=== PATIENT | female | born 1960 | race Caucasian/White ===

== ENCOUNTER → 2018-04-08 09:12 | Outpatient (CLI) | payer OTHER, SELFPAY ==
--- NOTE | 2018-04-08 09:19 | BI_ITS ---
MAMMOGRAPHY - BILATERAL SCREENING 3-D EILEEN SYNTHESIS REASON FOR EXAM: Female, 57 years old. Bilateral Screening 3-D tomosynthesis PERTINENT HISTORY: No significant family history. TECHNIQUE: 2-D mammograms and 3-D Eileen synthesis of the breast (s) were performed. CAD was performed. COMPARISON: March 08, 2017, February 26, 2016 FINDINGS: The breast composition is composed of scattered fibroglandular density. Scattered benign calcifications are seen. No dense spiculated masses or suspicious microcalcifications are identified. No architectural distortion is identified. There is no skin thickening or retraction. There has been no significant change since the prior study. BI/SCREENING MAMM (CAD), BILAT IMPRESSION: No mammographic signs of malignancy. Routine yearly mammograms recommended. ASSESSMENT CATEGORY: BIRADS Category 2: Benign. A letter regarding these results will be sent to the patient by the facility within 30 days. FOLLOW UP RECOMMENDATION: Yearly follow up mammogram recommended. (A) Approximately 10% of breast cancers are not detected by mammography. A normal mammogram should not delay biopsy of a clinically suspicious abnormality. Electronically Signed: Jhon Pham MD at 17:45 EDT , Service support ,
== END ==
PROVIDERS: Family Provider Family Medicine; PCP Family Medicine; Visit Provider Family Medicine
DX: Z12.31 Encounter for screening mammogram for malignant neoplasm of breast (principal)
CPT/HCPCS: 77063; 77067

== ENCOUNTER → 2019-04-23 | Outpatient (CLI) | payer OTHER, SELFPAY ==
--- NOTE | 2019-04-23 13:25 | BI_ITS ---
MAMMOGRAPHY - BILATERAL SCREENING REASON FOR EXAM: Female, 58 years old. Routine annual screening examination. PERTINENT HISTORY: Aunt with breast cancer. TECHNIQUE: Digital bilateral breast eileen (3D mammographic acquisition) in the CC and MLO projections. 2-D mediolateral oblique (MLO) and craniocaudad (CC) views of both breasts were obtained. CAD: Full Field Digital Mammography with Computer Added Detection was performed. COMPARISON: Comparison is made with prior study dated April 08, 2018 and March 08, 2017. FINDINGS: Breast Composition: The breasts are heterogeneously dense, which may obscure small masses. There are no dominant masses or suspicious calcifications. No other significant abnormalities are identified. There has been no significant change since the prior study. BI/SCREEN MAMM (CAD) W/EILEEN BILAT IMPRESSION: Stable bilateral screening mammogram. Yearly follow-up mammogram recommended. (A) ASSESSMENT CATEGORY: BIRADS Category 1: Negative. A letter regarding these results will be sent to the patient by the facility within 30 days. Approximately 10% of breast cancers are not detected by mammography. A normal mammogram should not delay biopsy of a clinically suspicious abnormality. [id number] Electronically Signed: Flavio Shelley, at 14:53 EDT , Service support ,
== END | disposition home or self-care (01) ==
LOC: OPBI 13:23
PROVIDERS: Family Provider Family Medicine; PCP Family Medicine; Referring Provider Family Medicine; Visit Provider Family Medicine
DX: Z12.31 Encounter for screening mammogram for malignant neoplasm of breast (principal)
CPT/HCPCS: 77063; 77067

== ENCOUNTER → 2019-07-13 07:31 | Outpatient (CLI) | payer OTHER, SELFPAY ==
[2019-07-13 11:15] LABS: Anion Gap 7 (5-15); BUN 14 mg/dL (7-18); BUN/Creat Ratio 15.5 RATIO (10-20); Calcium,Total 8.5 mg/dL (8.5-10.1); Chloride 108 mmol/L (98-107); Cholesterol 174 mg/dL (200); EST Glomerular Filtration Rate 68 mL/min (>60); Est Glom Filt Rate - Afr Amer 82 mL/min (>60); Glucose 80 mg/dL (74-106); High Density Lipoprotein 85 mg/dL; Potassium 3.9 mmol/L (3.5-5.1); Sodium Level 144 mmol/L (136-145); Triglycerides 65 mg/dL; Very Low Density Lipoprotein 13 mg/dL (5-40)
== END ==
PROVIDERS: Family Provider Family Medicine; PCP Family Medicine; Referring Provider Family Medicine; Visit Provider Family Medicine
DX: Z13.220 Encounter for screening for lipoid disorders (principal); Z13.1 Encounter for screening for diabetes mellitus
CPT/HCPCS: 36415; 80048; 80061

== ENCOUNTER → 2020-06-06 10:14 | Outpatient (CLI) | payer OTHER, SELFPAY ==
[2020-06-06 12:18] LABS: Absolute Lymphocyte Count 1.29 X10^3/uL (0.83-4.51); Absolute Neutrophil Count 3.5 X10^3/uL (2.0-7.7); Basophil# 0.06 X10^3/uL; Basophil% 1.1 % (0-1); Eosinophil# 0.12 X10^3/uL; Eosinophils% 2.2 % (0-5); Hematocrit 41.6 % (37-47); Hemoglobin 13.4 g/dL (12.0-15.0); Lymphocyte # 1.29 X10^3/ul (4.0); Lymphocyte % 23.2 % (19-41); Mean Corp Hgb Conc 32.2 g/dL (32-36); Mean Corpuscular Hgb 30.7 pg (27.0-32.0); Mean Corpuscular Volume 95.2 fL (81-99); Monocyte# 0.61 X10^3/uL; NRBC Flagged by Analyzer 0 % (0-5); Neutrophil # 3.48 X10^3/uL (2.7-7.7); Neutrophil % 62.3 % (47-70); Platelet Count 211 K/mm3 (150-450); RBC Distribution Width CV 13.4 % (11.6-14.6); RBC Distribution Width SD 46.5 fl (35.1-43.9); Red Blood Count 4.37 M/mm3 (4.2-5.4); White Blood Count 5.6 K/mm3 (4.4-11.0)
[2020-06-06 12:35] LABS: ALB/GLOB Ratio 1.2 RATIO (0.9-2.4); AST(SGOT) 20 U/L (15-37); Alanine Aminotransfer ALT/SGPT 25 U/L (13-56); Albumin, Serum 3.8 g/dL (3.2-5.0); Alkaline Phosphatase 57 U/L (45-117); Anion Gap 2 (5-15); BUN 18 mg/dL (7-18); BUN/Creat Ratio 19.3 RATIO (10-20); Calcium,Total 8.5 mg/dL (8.5-10.1); Chloride 106 mmol/L (98-107); Creatinine, Serum 0.93 mg/dL (0.55-1.02); EST Glomerular Filtration Rate 65 mL/min (>60); Est Glom Filt Rate - Afr Amer 79 mL/min (>60); Globulin 3.3 g/dL (2.2-4.2); Glucose 93 mg/dL (74-106); Potassium 4.6 mmol/L (3.5-5.1); Protein, Total 7.1 g/dL (6.4-8.2); Sodium Level 139 mmol/L (136-145); T4 Free Direct 1.08 ng/dL (0.76-1.46); Thyroid Stim Hormone (TSH) 1.45 uIU/mL (0.358-3.74)
[2020-06-09 21:13] LABS: Anti-Thyroglobulin AB < 1.0 IU/mL (0.0-0.9); Thyroid Peroxidase AB 10 IU/mL (0-34)
[2020-06-15 13:21] LABS: HPV Reflexed? YES, CHARGE PATIENT
== END ==
PROVIDERS: PCP Family Medicine; Referring Provider Family Medicine; Visit Provider Family Medicine
DX: Z01.419 Encounter for gynecological examination (general) (routine) without abnormal findings (principal); E55.9 Vitamin D deficiency, unspecified; E01.0 Iodine-deficiency related diffuse (endemic) goiter
CPT/HCPCS: 36415; 80053; 82306; 84432; 84439; 84443; 85025; 86376; 86800; 87624; 88175; G0145

== ENCOUNTER → 2020-06-20 12:12 | Outpatient (CLI) | payer OTHER, SELFPAY ==
--- NOTE | 2020-06-20 12:29 | US_ITS ---
STUDY: THYROID ULTRASOUND REASON FOR EXAM: Female, 59 years old. Thyromegaly TECHNIQUE: Ultrasound evaluation of the thyroid was performed with real-time and static fried-scale imaging. COMPARISON: None. FINDINGS: RIGHT LOBE: The right lobe of the thyroid gland is slightly enlarged and measures 5.1 cm x 1.3 cm x 1.5 cm. There is a homogeneous echotexture. There is a 3 mm x 3 mm x 2 mm hypoechoic solid nodule in the upper pole of the right lobe. LEFT LOBE: The left lobe of the thyroid gland measures 4.8 cm x 1.2 cm x 1.1 cm. There is a homogeneous echotexture. There is a 4 mm x 3 mm x 2 mm hypoechoic solid nodule in the upper pole of the left lobe. ISTHMUS: The isthmus measures 2.2 mm. The regional lymph nodes are normal. US/Thyroid IMPRESSION: Small, subcentimeter hypoechoic nodules in both lobes as described. Electronically Signed: Flavio Shelley, at 13:49 EDT , Service support ,
--- NOTE | 2020-06-20 12:29 | BI_ITS ---
MAMMOGRAPHY - BILATERAL SCREENING REASON FOR EXAM: Female, 59 years old. Routine annual screening examination. PERTINENT HISTORY: Aunt with breast cancer. TECHNIQUE: Digital bilateral breast eileen (3D mammographic acquisition) in the CC and MLO projections. 2-D mediolateral oblique (MLO) and craniocaudad (CC) views of both breasts were obtained. CAD: Full Field Digital Mammography with Computer Added Detection was performed. COMPARISON: Comparison is made with prior examination dated 04/23/2019 and 04/08/2018. FINDINGS: Breast Composition: The breasts are heterogeneously dense, which may obscure small masses. There are no dominant masses or suspicious calcifications. No other significant abnormalities are identified. There has been no significant change since the prior study. BI/SCREEN MAMM (CAD) W/EILEEN BILAT IMPRESSION: Stable bilateral screening mammogram. Yearly follow-up mammogram recommended. (A) ASSESSMENT CATEGORY: BIRADS Category 1: Negative. A letter regarding these results will be sent to the patient by the facility within 30 days. Approximately 10% of breast cancers are not detected by mammography. A normal mammogram should not delay biopsy of a clinically suspicious abnormality. [id number] Electronically Signed: Flavio Shelley, at 13:21 EDT , Service support ,
== END ==
PROVIDERS: PCP Family Medicine; Referring Provider Family Medicine; Visit Provider Family Medicine
DX: E01.0 Iodine-deficiency related diffuse (endemic) goiter (principal); Z12.31 Encounter for screening mammogram for malignant neoplasm of breast
CPT/HCPCS: 76536; 77063; 77067

== ENCOUNTER → 2021-06-24 08:00 | Outpatient (CLI) | payer OTHER, SELFPAY ==
--- NOTE | 2021-06-24 08:03 | BI_ITS ---
MAMMOGRAPHY - BILATERAL SCREENING REASON FOR EXAM: Female, 60 years old. Routine annual screening examination. PERTINENT HISTORY: Aunt with breast cancer. TECHNIQUE: Digital bilateral breast eileen (3D mammographic acquisition) in the CC and MLO projections. 2-D mediolateral oblique (MLO) and craniocaudad (CC) views of both breasts were obtained. CAD: Full Field Digital Mammography with Computer Added Detection was performed. COMPARISON: Comparison is made with prior study dated 06/20/2020 and 04/23/2019. FINDINGS: Breast Composition: The breasts are heterogeneously dense, which may obscure small masses. There are no dominant masses or suspicious calcifications. No other significant abnormalities are identified. There has been no significant change since the prior study. BI/SCRN MAMM (CAD)W/EILEEN BILAT IMPRESSION: Stable bilateral screening mammogram. Yearly follow-up mammogram recommended. (A) ASSESSMENT CATEGORY: BIRADS Category 1: Negative. A letter regarding these results will be sent to the patient by the facility within 30 days. Approximately 10% of breast cancers are not detected by mammography. A normal mammogram should not delay biopsy of a clinically suspicious abnormality. [id number] Electronically Signed: Flavio Shelley MD at 8:39 EDT , Service support ,
== END ==
PROVIDERS: PCP Family Medicine; Referring Provider Family Medicine; Visit Provider Family Medicine
DX: Z12.31 Encounter for screening mammogram for malignant neoplasm of breast (principal)
CPT/HCPCS: 77063; 77067

== ENCOUNTER → 2022-06-25 | Outpatient (CLI) | payer OTHER, SELFPAY ==
--- NOTE | 2022-06-25 13:09 | BI_ITS ---
MAMMOGRAPHY - BILATERAL SCREENING REASON FOR EXAM: Female, 61 years old. Routine annual screening examination. PERTINENT HISTORY: Aunt with breast cancer. TECHNIQUE: Digital bilateral breast mimi (3D mammographic acquisition) in the CC and MLO projections. 2-D mediolateral oblique (MLO) and craniocaudad (CC) views of both breasts were obtained. CAD: Full Field Digital Mammography with Computer Added Detection was performed. COMPARISON: Comparison is made with prior study 06/24/2021 and 06/20/2020. FINDINGS: Breast Composition: The breasts are heterogeneously dense, which may obscure small masses. There are no dominant masses or suspicious calcifications. No other significant abnormalities are identified. There has been no significant change since the prior study. BI/SCREENING MAMM (CAD), BILAT IMPRESSION: Stable bilateral screening mammogram. Yearly follow-up mammogram recommended. (A) ASSESSMENT CATEGORY: BIRADS Category 1: Negative. A letter regarding these results will be sent to the patient by the facility within 30 days. Approximately 10% of breast cancers are not detected by mammography. A normal mammogram should not delay biopsy of a clinically suspicious abnormality. [id number] Electronically Signed: Flavio Shelley MD at 13:47 EDT ,
== END | disposition home or self-care (01) ==
PROVIDERS: PCP Family Medicine; Visit Provider Family Medicine
DX: Z12.31 Encounter for screening mammogram for malignant neoplasm of breast (principal)
CPT/HCPCS: 77067

== ENCOUNTER → 2022-09-10 | Outpatient (CLI) | payer SELFPAY ==
--- NOTE | 2022-09-10 19:00 | US_ITS ---
INDICATION: MULTIPLE THYROID NODULES EXAMINATION: Ultrasound US Thyroid (eg thyroid, parathyroid, parotid) TECHNIQUE: So scale and color doppler imaging was performed of the thyroid gland. COMPARISON: 06/20/2020. FINDINGS: RIGHT THYROID LOBE: 6.6 mL in volume. Homogeneous echotexture with normal vascularity. [3 x 4 x 2 mm superior right thyroid lobe mostly cystic nodule with central internal echoes suggesting solid component but no color flow is unchanged compared to prior exam. This represents a Ti RADS category 1, benign nodule. No follow-up recommended. LEFT THYROID LOBE: 4.2 mL in volume. Homogeneous echotexture with normal vascularity. [5 x 5 x 3 mm, mixed solid and cystic nodule mid left thyroid lobe, wider than tall with ill-defined margins and no calcifications represents a Ti RADS category 2 nodule, not suspicious. No follow-up recommended ISTHMUS: 3 mm. No thyroid nodules are present. US/Thyroid IMPRESSION: Unchanged benign or not suspicious thyroid nodules as above with no follow-up imaging recommended based on the ACR Ti RADS recommendations. Electronically Signed: Jose L Stoddard DO at 23:08 EDT ,
== END | disposition home or self-care (01) ==
PROVIDERS: PCP Family Medicine; Visit Provider Family Medicine
DX: E04.2 Nontoxic multinodular goiter (principal)
CPT/HCPCS: 76536

== ENCOUNTER → 2023-06-28 | Outpatient (CLI) | payer OTHER, SELFPAY ==
--- NOTE | 2023-06-28 10:36 | BI_ITS ---
MAMMOGRAPHY - BILATERAL SCREENING REASON FOR EXAM: Female, 62 years old. Routine annual screening examination. PERTINENT HISTORY: Aunt with breast cancer. TECHNIQUE: Digital bilateral breast eileen (3D mammographic acquisition) in the CC and MLO projections. 2-D mediolateral oblique (MLO) and craniocaudad (CC) views of both breasts were obtained. CAD: Full Field Digital Mammography with Computer Added Detection was performed. COMPARISON: Screening mammogram from 06/25/2022, 06/24/2021. FINDINGS: Breast Composition: The breasts are heterogeneously dense, which may obscure small masses. There are no dominant masses or suspicious calcifications. No other significant abnormalities are identified. There has been no significant change since the prior study. BI/SCRN MAMM (CAD)W/EILEEN BILAT IMPRESSION: Stable bilateral screening mammogram. Yearly follow-up mammogram recommended. (A) ASSESSMENT CATEGORY: BIRADS Category 1: Negative. A letter regarding these results will be sent to the patient by the facility within 30 days. Approximately 10% of breast cancers are not detected by mammography. A normal mammogram should not delay biopsy of a clinically suspicious abnormality. Electronically Signed: Neftali Jimenes DO at 11:07 EDT ,
== END | disposition home or self-care (01) ==
LOC: OPBI 10:35
PROVIDERS: PCP Family Medicine; Referring Provider Family Medicine; Visit Provider Family Medicine
DX: Z12.31 Encounter for screening mammogram for malignant neoplasm of breast (principal); Z80.3 Family history of malignant neoplasm of breast
CPT/HCPCS: 77063; 77067

== ENCOUNTER → 2024-07-02 | Outpatient (CLI) | payer OTHER, SELFPAY ==
--- NOTE | 2024-07-02 13:01 | BI_ITS ---
MAMMOGRAPHY - BILATERAL SCREENING REASON FOR EXAM: Female, 63 years old. Routine annual screening examination. PERTINENT HISTORY: Aunt with breast cancer. TECHNIQUE: Digital bilateral breast mimi (3D mammographic acquisition) in the CC and MLO projections. 2-D mediolateral oblique (MLO) and craniocaudad (CC) views of both breasts were obtained. CAD: Full Field Digital Mammography with Computer Added Detection was performed. COMPARISON: Comparison is made with prior study dated June 28, 2023 and June 25, 2022. FINDINGS: Breast Composition: The breasts are heterogeneously dense, which may obscure small masses. There are no dominant masses or suspicious calcifications. No other significant abnormalities are identified. There has been no significant change since the prior study. BI/SCREENING MAMM (CAD), BILAT IMPRESSION: Stable bilateral screening mammogram. Yearly follow-up mammogram recommended. (A) ASSESSMENT CATEGORY: BIRADS Category 1: Negative. A letter regarding these results will be sent to the patient by the facility within 30 days. Approximately 10% of breast cancers are not detected by mammography. A normal mammogram should not delay biopsy of a clinically suspicious abnormality. [id number] Electronically Signed: Flavio Shelley MD at 14:02 EDT ,
== END | disposition home or self-care (01) ==
LOC: OPBI 12:59
PROVIDERS: PCP Family Medicine; Referring Provider Family Medicine; Visit Provider Family Medicine
DX: Z12.31 Encounter for screening mammogram for malignant neoplasm of breast (principal); Z80.3 Family history of malignant neoplasm of breast
CPT/HCPCS: 77067

== ENCOUNTER → 2024-07-31 | Outpatient (CLI) | payer OTHER, SELFPAY | END | disposition home or self-care (01) | PROVIDERS: PCP Family Medicine; Visit Provider Family Medicine | DX: Z11.51 Encounter for screening for human papillomavirus (HPV) (principal) ==

== ENCOUNTER → 2024-08-09 | Outpatient (CLI) | payer OTHER, SELFPAY ==
[2024-08-09 08:03] LABS: Mucous, Urine 0 SEEN /hpf (<or=2+); Red Blood Cells-Urine 0 SEEN /hpf (0-5)
[2024-08-09 10:00] LABS: Absolute Neutrophil Count 3.9 X10^3/uL (2.0-7.7); Basophil# 0.06 X10^3/uL; Eosinophil# 0.15 X10^3/uL; Eosinophils% 2.4 % (0-5); Hematocrit 41.5 % (37-47); Hemoglobin 13.3 g/dL (12.0-15.0); Lymphocyte % 25.9 % (19-41); Mean Corpuscular Hgb 29.6 pg (27.0-32.0); Mean Corpuscular Volume 92.4 fL (81-99); Mean Platelet Vol. 10.8 fl (6.2-12.0); Monocyte# 0.48 X10^3/uL; Monocyte% 7.8 % (0-10); NRBC Flagged by Analyzer 0 % (0-5); Neutrophil # 3.87 X10^3/uL (2.7-7.7); Neutrophil % 62.6 % (47-70); Platelet Count 236 K/mm3 (150-450); RBC Distribution Width CV 13.7 % (11.6-14.6); RBC Distribution Width SD 46.7 fl (35.1-43.9); Red Blood Count 4.49 M/mm3 (4.2-5.4); White Blood Count 6.2 K/mm3 (4.4-11.0)
[2024-08-09 10:11] LABS: Color, Urine Straw (Yellow); Glucose, Dipstick Normal (Normal); Ketone-Dipstick Negative (Negative); Leukocyte Esterase-Dipstick 25 /ul (Negative); Nitrite-Dipstick Negative (Negative); Occult Blood-Urine 25 /ul (Negative); Protein-Dipstick Negative (Negative); Urine Bilirubin Dipstick Negative (Negative); Urine Clarity Clear (Clear); Urine Urobilinogen Normal (Normal)
[2024-08-09 10:20] LABS: Bacteria RARE /hpf (None Seen); Squamous Epithelial Cells - UA 5-10 SEEN /hpf (5-10); White Blood Cells 10-25 SEEN /hpf (0-5)
[2024-08-09 11:08] LABS: ALB/GLOB Ratio 1.3 RATIO (0.9-2.4); AST(SGOT) 21 U/L (15-37); Alanine Aminotransfer ALT/SGPT 23 U/L (13-56); Albumin, Serum 3.9 g/dL (3.2-5.0); Alkaline Phosphatase 55 U/L (45-117); Anion Gap 3 (5-15); BUN 19 mg/dL (7-18); BUN/Creat Ratio 20.6 RATIO (10-20); Calcium,Total 9.4 mg/dL (8.5-10.1); Chloride 107 mmol/L (98-107); Cholesterol 197 mg/dL (200); Creatinine, Serum 0.92 mg/dL (0.55-1.02); EST Glomerular Filtration Rate 65 mL/min (>60); Est Glom Filt Rate - Afr Amer 79 mL/min (>60); Globulin 3.1 g/dL (2.2-4.2); Glucose 97 mg/dL (74-106); High Density Lipoprotein 111 mg/dL; Magnesium 2.3 mg/dL (1.6-2.6); Potassium 3.7 mmol/L (3.5-5.1); Sodium Level 139 mmol/L (136-145); T4 Free Direct 1.07 ng/dL (0.76-1.46); Triglycerides 61 mg/dL; Very Low Density Lipoprotein 12 mg/dL (5-40)
== END | disposition home or self-care (01) ==
LOC: MFPLAB 08:02
PROVIDERS: PCP Family Medicine; Referring Provider Family Medicine; Visit Provider Family Medicine
DX: Z00.00 Encounter for general adult medical examination without abnormal findings (principal); E04.2 Nontoxic multinodular goiter; R03.0 Elevated blood-pressure reading, without diagnosis of hypertension
CPT/HCPCS: 36415; 80053; 80061; 81001; 83735; 84439; 84443; 85025

== ENCOUNTER → 2025-07-03 | Outpatient (CLI) | payer MEDICARE, OTHER, SELFPAY ==
--- NOTE | 2025-07-03 12:42 | BI_ITS ---
EXAM: SCRN MAMM (CAD)W/EILEEN BILAT DATE: 07/03/2025 CLINICAL HISTORY: F, Age 64 y/o , ROUTINE SCREENING Aunt with breast cancer. TECHNIQUE: SCRN MAMM (CAD)W/EILEEN BILAT COMPARISON: Prior exam(s) dated July 02, 2024.. FINDINGS: TISSUE DENSITY: The breasts are heterogeneously dense, which may obscure small masses. Bilateral Breast Mammographic Findings: No significant masses, calcifications or other abnormalities are identified. Stable small benign-appearing bilateral axillary lymph nodes. No suspicious masses, areas of developing architectural distortion, or suspicious calcifications. There has been no significant interval change. BI/SCRN MAMM (CAD)W/EILEEN BILAT IMPRESSION: Stable examination. OVERALL FINAL ASSESSMENT BI-RADS 2: BENIGN RECOMMENDATION: Routine annual follow-up in 1 Year A letter with findings and recommendations will be mailed to the patient. Reading Location: [id number]
== END | disposition home or self-care (01) ==
LOC: OPBI 12:41
PROVIDERS: PCP Family Medicine; Referring Provider Family Medicine; Visit Provider Family Medicine
DX: Z12.31 Encounter for screening mammogram for malignant neoplasm of breast (principal); Z80.3 Family history of malignant neoplasm of breast
CPT/HCPCS: 77063; 77067

== ENCOUNTER → 2025-08-06 | Outpatient (CLI) | payer MEDICARE, OTHER, SELFPAY ==
[2025-08-06 11:04] LABS: Mucous, Urine 0 SEEN /hpf (<or=2+)
[2025-08-06 15:44] LABS: Color, Urine Yellow (Yellow); Glucose, Dipstick Normal (Normal); Ketone-Dipstick Negative (Negative); Leukocyte Esterase-Dipstick 25 /ul (Negative); Nitrite-Dipstick Negative (Negative); Occult Blood-Urine Negative /ul (Negative); Protein-Dipstick Negative (Negative); Specific Gravity, Urine 1.010 (1.002-1.030); Urine Bilirubin Dipstick Negative (Negative)
[2025-08-06 15:46] LABS: Hematocrit 42.1 % (37-47); Hemoglobin 13.8 g/dL (12.0-15.0); Immature Granulocytes Count 0.050 X10^3/uL (0.0-0.0); Mean Corp Hgb Conc 32.8 g/dL (32-36); Mean Corpuscular Volume 93.1 fL (81-99); Mean Platelet Vol. 11.2 fl (6.2-12.0); NRBC Flagged by Analyzer 0 % (0-5); Platelet Count 260 K/mm3 (150-450); RBC Distribution Width CV 13.8 % (11.6-14.6); RBC Distribution Width SD 47.1 fl (35.1-43.9); Red Blood Count 4.52 M/mm3 (4.2-5.4); White Blood Count 10.8 K/mm3 (4.4-11.0)
[2025-08-06 15:59] LABS: Red Blood Cells-Urine 0-5 SEEN /hpf (0-5); Squamous Epithelial Cells - UA 0-5 SEEN /hpf (5-10)
[2025-08-06 17:02] LABS: AST(SGOT) 26 U/L (<=31); Alanine Aminotransfer ALT/SGPT 25 U/L (<=34); Albumin, Serum 4.5 g/dL (3.4-4.8); Alkaline Phosphatase 54 U/L (35-104); Anion Gap 12 (5-15); BUN 19 mg/dL (4-19); BUN/Creat Ratio 21.3 RATIO (10-20); Calcium,Total 9.6 mg/dL (7.6-11.0); Carbon Dioxide 25.0 mmol/L (21.0-32.0); Chloride 104 mmol/L (98-108); Cholesterol 211 mg/dL (<=200); Globulin 2.6 g/dL (2.2-4.2); Glucose 107 mg/dL (70-99); Low Density Lipoprotein Calc. 96 mg/dL; Potassium 4.9 mmol/L (3.3-5.1); Triglycerides 85 mg/dL; Very Low Density Lipoprotein 17 mg/dL (5-40); cholesterol:hdl ratio screen 2.16
== END | disposition home or self-care (01) ==
LOC: MFPLAB 11:00
PROVIDERS: PCP Family Medicine; Referring Provider Family Medicine; Visit Provider Family Medicine
DX: R73.09 Other abnormal glucose (principal); I10 Essential (primary) hypertension
CPT/HCPCS: 80053; 80061; 81001; 83036; 84443; 85025

== ENCOUNTER → 2025-09-02 | Outpatient (CLI) | payer MEDICARE, OTHER, SELFPAY ==
--- OUTSIDE RECORDS SUMMARY | 2025-09-02 06:44 | XMS RPT_ITS | CCD ---
Author Organization [facility] Care Team Providers Care Boating Safety Officer Name Role Phone Justin DIAZ, Dr. Booker Shea Primary Care Provider Justin DIAZ, Dr. Booker Shea Attending Provider Justin DIAZ, Dr. Booker Shea Referring Provider oBoker Anderson Referring Unavailable Booker Anderson Primary Care Unavailable Booker Anderson Attending Unavailable Booker Anderson Referring Unavailable Booker Anderson Primary Care Unavailable Booker Anderson Attending Unavailable Booker Anderson Primary Care Unavailable Booker Anderson Attending Unavailable Booker Anderson Referring Unavailable Booker Anderson Referring Unavailable Booker Anderson Primary Care Unavailable Booker Anderson Attending Unavailable Problems Problem Classification Problem Date Documented Date Episodic/Chronic Diabetes mellitus without complication (1 source) Other abnormal glucose; Translations: [Other abnormal glucose] Onset: 08-30-2025 Episodic Other screening for suspected conditions (not mental disorders or infectious disease) (2 sources) Abnormal electrocardiogram [ECG] [EKG]; Translations: [Encounter for screening mammogram for malignant neoplasm of breast] Onset: 07-10-2025 Episodic Residual codes; unclassified (1 source) Asymptomatic menopausal state; Translations: [Asymptomatic menopausal state] Onset: 08-09-2025 Episodic Results Test Name Value Interpretation Reference Range Facil ity Hemoglobin A1con 08-08-2025 HbA1c (Bld) [Mass fraction] 5.6 % Normal <=5.6 [facility] Comment on above: Order Comment: PLEASE ADD A1C TO LABS DONE ON 08 06 25 Order Date: 08/08/25 Order Info: [id number] - A1C Comments: elevated glucose Result Comment: Norm al < 5.7 % Prediabetic 5.7 - 6.4 % Diabetic >or= 6.5 % Please note range changes. Performed By: #### L 501.9985 #### [facility] [address] [place], [address] CBC W/Diff, Automatedon 07-10 0-2024 Absolute Lymph 1.48 X10 3/uL Normal 0.83-4.51 [facility] Comment on above: Order Comment: Order Date: 08/06/25 Order Info: 0184-1 - CBCD Performed By: #### L 500.4100, L501.9520, L500.4050, L100.0100 #### [facility] [address] [place], [address] Absolute Neut 8.4 X10 3/uL High 2.0-7.7 [facility] Comment on above: Order Comment: Order Date: 08/06/25 Order Info: 0184-1 - CBCD Performed By: #### L 500.4100, L501.9520, L500.4050, L100.0100 #### [facility] [address] [place], [address] Basophils/100 WBC (Bld) 0.6 % Normal 0-1 [facility] Comment on above: Order Comment: Order Date: 08/06/25 Order Info: 0184-1 - CBCD Performed By: #### L 500.4100, L501.9520, L500.4050, L100.0100 #### [facility] [address] [place], [address] Eosinophils/100 WBC (Bld) 0.8 % Normal 0-5 [facility] Comment on above: Order Comment: Order Date: 08/06/25 Order Info: 0184-1 - CBCD Performed By: #### L 500.4100, L501.9520, L500.4050, L100.0100 #### [facility] [address] [place], [address] Erythrocyte distribution width (RBC) [Ratio] 13.8 % Normal 11.6-14.6 [facility] Comment on above: Order Comment: Order Date: 08/06/25 Order Info: 0184-1 - CBCD Performed By: #### L 500.4100, L501.9520, L500.4050, L100.0100 #### [facility] [address] [place], [address] Hematocrit (Bld) [Volume fraction] 42.1 % Normal 37-47 [facility] Comment on above: Order Comment: Order Date: 08/06/25 Order Info: 0184-1 - CBCD Performed By: #### L 500.4100, L501.9520, L500.4050, L100.0100 #### [facility] [address] [place], [address] Hemoglobin (Bld) [Mass/Vol] 13.8 g/dL Normal 12.0-15.0 [facility] Comment on above: Order Comment: Order Date: 08/06/25 Order Info: 0184-1 - CBCD Performed By: #### L 500.4100, L501.9520, L500.4050, L100.0100 #### [facility] [address] [place], [address] IG% 0.500 Normal 0.0-0.9 [facility] Comment on above: Order Comment: Order Date: 08/06/25 Order Info: 0184-1 - CBCD Result Comment: IG% - Immature Granulocytes (promyelocytes, myelocytes and metamyelocytes) > 1% indicates that a LEFT SHIFT is Present. Performed By: #### L 500.4100, L501.9520, L500.4050, L100.0100 #### [facility] [address] [place], [address] Lymphocytes/100 WBC (Bld) 13.7 % Low 19-41 [facility] Comment on above: Order Comment: Order Date: 08/06/25 Order Info: 0184-1 - CBCD Performed By: #### L 500.4100, L501.9520, L500.4050, L100.0100 #### [facility] [address] [place], [address] MCH (RBC) [Entitic mass] 30.5 pg Normal 27.0-32.0 [facility] Comment on above: Order Comment: Order Date: 08/06/25 Order Info: 018-1 - CBCD Performed By: #### L 500.4100, L501.9520, L500.4050, L100.0100 #### [facility] [address] [place], [address] MCHC (RBC) [Mass/Vol] 32.8 g/dL Normal 32-36 [facility] Comment on above: Order Comment: Order Date: 08/06/25 Order Info: 018-1 - CBCD Performed By: #### L 500.4100, L501.9520, L500.4050, L100.0100 #### [facility] [address] [place], [address] MCV (RBC) [Entitic vol] 93.1 fL Normal 81-99 [facility] Comment on above: Order Comment: Order Date: 08/06/25 Order Info: 0184-1 - CBCD Performed By: #### L 500.4100, L501.9520, L500.4050, L100.0100 #### [facility] [address] [place], [address] Monocytes/100 WBC (Bld) 7.0 % Normal 0-10 [facility] Comment on above: Order Comment: Order Date: 08/06/25 Order Info: 0184-1 - CBCD Performed By: #### L 500.4100, L501.9520, L500.4050, L100.0100 #### [facility] [address] [place], [address] Neutrophils/100 WBC (Bld) 77.4 % High 47-70 [facility] Comment on above: Order Comment: Order Date: 08/06/25 Order Info: 0184-1 - CBCD Performed By: #### L 500.4100, L501.9520, L500.4050, L100.0100 #### [facility] [address] [place], [address] Nucleated RBC (Bld) [#/Vol] 0 10*3/uL Normal 0-5 [facility] Comment on above: Order Comment: Order Date: 08/06/25 Order Info: 0184-1 - CBCD Performed By: #### L 500.4100, L501.9520, L500.4050, L100.0100 #### [facility] [address] [place], [address] Platelet mean volume (Bld) [Entitic vol] 11.2 fL Normal 6.2-12.0 [facility] Comment on above: Order Comment: Order Date: 08/06/25 Order Info: 0184-1 - CBCD Performed By: #### L 500.4100, L501.9520, L500.4050, L100.0100 #### [facility] [address] [place], [address] Platelets (Bld) [#/Vol] 260 10*3/uL Normal 150-450 [facility] Comment on above: Order Comment: Order Date: 08/06/25 Order Info: 0184-1 - CBCD Performed By: #### L 500.4100, L501.9520, L500.4050, L100.0100 #### [facility] [address] [place], [address] RBC (Bld) [#/Vol] 4.52 10*6/uL Normal 4.2-5.4 [facility] Comment on above: Order Comment: Order Date: 08/06/25 Order Info: 0184-1 - CBCD Performed By: #### L 500.4100, L501.9520, L500.4050, L100.0100 #### [facility] [address] [place], [address] RDW SD 47.1 fl High 35.1-43.9 [facility] Comment on above: Order Comment: Order Date: 08/06/25 Order Info: 0184- - CBCD Performed By: #### L 500.4100, L501.9520, L500.4050, L100.0100 #### [facility] [address] [place], [address] WBC (Bld) [#/Vol] 10.8 10*3/uL Normal 4.4-11.0 [facility] Comment on above: Order Comment: Order Date: 08/06/25 Order Info: 0184-1 - CBCD Performed By: #### L 500.4100, L501.9520, L500.4050, L100.0100 #### [facility] [address] [place], [address] Comprehensive Metabolic Prof wvon 08-06-2025 Albumin [Mass/Vol] 4.5 g/dL Normal 3.4-4.8 [facility] Comment on above: Order Comment: Order Date: 08/06/25 Order Info: 0786-1 - CMP Order Info: [id number] - LIPID Order Info: 3016-3 - TSH Performed By: #### L 500.4100, L501.9520, L500.4050, L100.0100 #### [facility] [address] [place], [address] Albumin/Globulin [Mass ratio] 1.7 {ratio} Normal 0.9-2.4 [facility] Comment on above: Order Comment: Order Date: 08/06/25 Order Info: 0786-1 - CMP Order Info: [id number] - LIPID Order Info: 3016-3 - TSH Performed By: #### L 500.4100, L501.9520, L500.4050, L100.0100 #### [facility] [address] [place], [address] ALK PHOS 54 U/L Normal 35-104 [facility] Comment on above: Order Comment: Order Date: 08/06/25 Order Info: 785-11 - CMP Order Info: - LIPID Order Info: 3 - TSH Performed By: #### L 500.4100, L501.9520, L500.4050, L100.0100 #### [facility] [address] [place], [address] ALT [Catalytic activity/Vol] 25 U/L Normal <=34 [facility] Comment on above: Order Comment: Order Date: 08/06/25 Order Info: 785-11 - CMP Order Info: - LIPID Order Info: 3 - TSH Performed By: #### L 500.4100, L501.9520, L500.4050, L100.0100 #### [facility] [address] [place], [address] AST [Catalytic activity/Vol] 26 U/L Normal <=31 [facility] Comment on above: Order Comment: Order Date: 08/06/25 Order Info: 785-11 - CMP Order Info: - LIPID Order Info: 3 - TSH Performed By: #### L 500.4100, L501.9520, L500.4050, L100.0100 #### [facility] [address] [place], [address] Bilirubin [Mass/Vol] 0.43 mg/dL Normal 0.00-1.30 [facility] Comment on above: Order Comment: Order Date: 08/06/25 Order Info: 0786- - CMP Order Info: - LIPID Order Info: 3 - TSH Performed By: #### L 500.4100, L501.9520, L500.4050, L100.0100 #### [facility] [address] [place], [address] BUN/CRE 21.3 RATIO High 10-20 [facility] Comment on above: Order Comment: Order Date: 08/06/25 Order Info: 785- - CMP Order Info: - LIPID Order Info: 3016-01 - TSH Performed By: #### L 500.4100, L501.9520, L500.4050, L100.0100 #### [facility] [address] [place], [address] Calcium [Mass/Vol] 9.6 mg/dL Normal 7.6-11.0 [facility] Comment on above: Order Comment: Order Date: 08/06/25 Order Info: 785-11 - CMP Order Info: - LIPID Order Info: 3016-01 - TSH Performed By: #### L 500.4100, L501.9520, L500.4050, L100.0100 #### [facility] [address] [place], [address] Chloride [Moles/Vol] 104 mmol/L Normal 98-108 [facility] Comment on above: Order Comment: Order Date: 08/06/25 Order Info: 07 - CMP Order Info: - LIPID Order Info: 3016-01 - TSH Performed By: #### L 500.4100, L501.9520, L500.4050, L100.0100 #### [facility] [address] [place], [address] CO2 [Moles/Vol] 25.0 mmol/L Normal 21.0-32.0 [facility] Comment on above: Order Comment: Order Date: 08/06/25 Order Info: 0786 - CMP Order Info: - LIPID Order Info: 3016-01 - TSH Performed By: #### L 500.4100, L501.9520, L500.4050, L100.0100 #### [facility] [address] [place], [address] Creatinine [Mass/Vol] 0.90 mg/dL Normal 0.70-1.20 [facility] Comment on above: Order Comment: Order Date: 08/06/25 Order Info: 785- - CMP Order Info: - LIPID Order Info: 3 - TSH Performed By: #### L 500.4100, L501.9520, L500.4050, L100.0100 #### [facility] [address] [place], [address] GAP 12 Normal 5-15 [facility] Comment on above: Order Comment: Order Date: 08/06/25 Order Info: 785-11 - CMP Order Info: - LIPID Order Info: 3016-01 - TSH Performed By: #### L 500.4100, L501.9520, L500.4050, L100.0100 #### [facility] [address] [place], [address] GFR/1.73 sq M.predicted among non-blacks MDRD (S/P/Bld) [Vol rate/Area] 71 mL/min/{1.73_m2} Normal >60 [facility] Comment on above: Order Comment: Order Date: 08/06/25 Order Info: 785-11 - CMP Order Info: 72875-0 - LIPID Order Info: 3 - TSH Result Comment: mL/m in/1.73m2 CKD-EPI Creatinine Equation (2020) Performed By: #### L 500.4100, L501.9520, L500.4050, L100.0100 #### [facility] [address] [place], [address] Globulin (S) [Mass/Vol] 2.6 g/dL Normal 2.2-4.2 [facility] Comment on above: Order Comment: Order Date: 08/06/25 Order Info: 07 - CMP Order Info: [id number] - LIPID Order Info: 3 - TSH Performed By: #### L 500.4100, L501.9520, L500.4050, L100.0100 #### [facility] [address] [place], [address] Glucose [Mass/Vol] 107 mg/dL High 70-99 [facility] Comment on above: Order Comment: Order Date: 08/06/25 Order Info: 785- - CMP Order Info: - LIPID Order Info: 3016-01 - TSH Performed By: #### L 500.4100, L501.9520, L500.4050, L100.0100 #### [facility] [address] [place], [address] Potassium [Moles/Vol] 4.9 mmol/L Normal 3.3-5.1 [facility] Comment on above: Order Comment: Order Date: 08/06/25 Order Info: 785-11 - CMP Order Info: [id number] - LIPID Order Info: 3016-01 - TSH Performed By: #### L 500.4100, L501.9520, L500.4050, L100.0100 #### [facility] [address] [place], [address] Sodium [Moles/Vol] 141 mmol/L Normal 133-145 [facility] Comment on above: Order Comment: Order Date: 08/06/25 Order Info: 785-11 - CMP Order Info: [id number] - LIPID Order Info: 3 - TSH Performed By: #### L 500.4100, L501.9520, L500.4050, L100.0100 #### [facility] [address] [place], [address] T PROT 7.0 g/dL Normal 5.9-8.4 [facility] Comment on above: Order Comment: Order Date: 08/06/25 Order Info: 07 - CMP Order Info: [id number] - LIPID Order Info: 3 - TSH Performed By: #### L 500.4100, L501.9520, L500.4050, L100.0100 #### [facility] [address] [place], [address] Urea nitrogen [Mass/Vol] 19 mg/dL Normal 4-19 [facility] Comment on above: Order Comment: Order Date: 08/06/25 Order Info: 0786- - CMP Order Info: - LIPID Order Info: 3 - TSH Performed By: #### L 500.4100, L501.9520, L500.4050, L100.0100 #### [facility] [address] [place], [address] Lipid Profileon 08-06-2025 CHOL:HDL 2.16 Normal [facility] Comment on above: Order Comment: Order Date: 08/06/25 Order Info: 0786- - CMP Order Info: - LIPID Order Info: 3016-01 - TSH Performed By: #### L 500.4100, L501.9520, L500.4050, L100.0100 #### [facility] [address] [place], [address] Cholesterol [Mass/Vol] 211 mg/dL High <=200 [facility] Comment on above: Order Comment: Order Date: 08/06/25 Order Info: 0786-1 - CMP Order Info: [id number] - LIPID Order Info: 3015-3 - TSH Result Comment: Chol esterol level, Desirable <200 mg/dL Borderline high cholesterol 200-239 mg/dL High cholesterol >=240 mg/dL Recommendations of the NCEP Adult Treatment Panel for the following risk-cutoff thresholds for the [place] population. Performed By: #### L 500.4100, L501.9520, L500.4050, L100.0100 #### [facility] [address] [place], [address] Cholesterol in HDL [Mass/Vol] 98 mg/dL Normal [facility] Comment on above: Order Comment: Order Date: 08/06/25 Order Info: 0786- - CMP Order Info: [id number] - LIPID Order Info: 3013 - TSH Result Comment: Jeanine onal Cholesterol Education Program (NCEP) guidelines: <40 mg/dL: Low HDL-cholesterol (major risk factor for CHD) >= 60 mg/dL: High HDL-cholesterol (negative risk factor for CHD) HDL-cholesterol is affected by a number of factors, e.g. smoking, exercise, hormones, sex and age. Performed By: #### L 500.4100, L501.9520, L500.4050, L100.0100 #### [facility] [address] [place], [address] Cholesterol in LDL [Mass/Vol] 96 mg/dL Normal [facility] Comment on above: Order Comment: Order Date: 08/06/25 Order Info: 0786 - CMP Order Info: 82215-2 - LIPID Order Info: 3013 - TSH Result Comment: Bord jtdplj=679-016 mg/dL Higher Lfnf=402 mg/dL or greater Friedwald Equation for LDL-C Performed By: #### L 500.4100, L501.9520, L500.4050, L100.0100 #### [facility] [address] [place], [address] Cholesterol in VLDL [Mass/Vol] 17 mg/dL Normal 5-40 [facility] Comment on above: Order Comment: Order Date: 08/06/25 Order Info: 0786- - CMP Order Info: [id number] - LIPID Order Info: 3013 - TSH Performed By: #### L 500.4100, L501.9520, L500.4050, L100.0100 #### [facility] [address] [place], [address] Triglyceride [Mass/Vol] 85 mg/dL Normal [facility] Comment on above: Order Comment: Order Date: 08/06/25 Order Info: 0786- - CMP Order Info: [id number] - LIPID Order Info: 3016-3 - TSH Result Comment: The drugs N-Acetylcysteine and Metamizole may falsely depress this assay. Normal range: <150 mg/dL Borderline High: 150-199 mg/dL High: 200-499 mg/dL Very High: >500 mg/dL Performed By: #### L 500.4100, L501.9520, L500.4050, L100.0100 #### [facility] [address] [place], [address] Thyroid Stim Hormone (TSH)on 08-06-2025 TSH 1.810 uIU/mL Normal 0.300-4.200 [facility] Comment on above: Order Comment: Order Date: 08/06/25 Order Info: 0786-1 - CMP Order Info: [id number] - LIPID Order Info: 3013 - TSH Performed By: #### L 500.4100, L501.9520, L500.4050, L100.0100 #### [facility] [address] [place], [address] Urinalysis, Completeon 08-06 EPI,SQUAMOUS 0-5 SEEN Normal 5-10 [facility] Comment on above: Order Comment: CLEAN CATCH Performed By: #### L 400.0001 #### [facility] [address] [place], [address] RBC 0-5 SEEN Normal 0-5 [facility] Comment on above: Order Comment: CLEAN CATCH Performed By: #### L 400.0001 #### [facility] [address] [place], [address] WBC 0-5 SEEN Normal 0-5 [facility] Comment on above: Order Comment: CLEAN CATCH Performed By: #### L 400.0001 #### [facility] [address] [place], [address] BACTERIA 0 SEEN Normal None Seen [facility] Comment on above: Order Comment: CLEAN CATCH Performed By: #### L 400.0001 #### [facility] [address] [place], [place], [address] Mucus Ql (Urine sed) 0 SEEN Normal [facility] Comment on above: Order Comment: CLEAN CATCH Performed By: #### L 400.0001 #### [facility] [address] [place], [place], [address] Breast imaging reportOrdered By: Flavio Shelley on 07-03-2025 Study report [facility] Imaging Services [address] [place], [place] [address] SCRN MAMM (CAD)W/EILEEN BILAT MR#: [id number] Acct: [id number] Name: SIDRA ALEJO Rep #: [id number] : 1960 F 64 From: Sid Shelley MD PCP: Dr. Booker Anderson MD Status: RE G CLI Study:SCRN MAMM (CAD)W/EILEEN BILAT Date of Exa m: 07/03/25 Exam# [id number] Ordering Dr: Booker Anderson MD EXAM: SCRN MAMM (CAD)W/EILEEN BILAT DATE: 07/03/2025 CLINICAL HISTORY: F, Age 64 y/o , ROUTINE SCREENING Aunt with breast cancer. TECHNIQUE: SCRN MAMM (CAD)W/EILEEN BILAT COMPARISON: Prior exam(s) dated July 02, 2024.. FINDINGS: TISSUE DENSITY: The breasts are heterogeneously dense, which may obscure small masses. Bilateral Breast Mammographic Findings: No significant masses, calcifications or other abnormalities are identified. Stable small benign-appearing bilateral axillary lymph nodes. No suspicious masses, areas of developing architectural distortion, or suspicious calcifications. There has been no significant interval change. BI/SCRN MAMM (CAD)W/EILEEN BILAT IMPRESSION: Stable examination. OVERALL FINAL ASSESSMENT BI-RADS 2: BENIGN RECOMMENDATION: Routine annual follow-up in 1 Year A letter with findings and recommendations will be mailed to the patient. Reading Location: [id number] CC: Dr. Booker Anderson MD ~ Dry Cleaner Helper: Signed [facility] SCRN MAMM (CAD)W/EILEEN BILATo n 07-03-2025 SCRN MAMM (CAD)W/EILEEN BILAT [facility] Imaging Services [address] [place] [address] SCRN MAMM (CAD)W/EILEEN BILAT MR#: [id number] Acct: [id number] Name: SIDRA ALEJO Rep #: [id number] : 1960 F 64 From: Flavio evans MD PCP: Dr. Booker Anderson MD Status: [facility] Study: SCRN MAMM (CAD)W/EILEEN BILAT Date of Exam: 06/08 05/31 Exam# [id number] Ordering Dr: Booker Anderson MD EXAM: SCRN MAMM (CAD)W/EILEEN BILAT DATE: 07/03/2025 CLINICAL HISTORY: F, Age 64 y/o , ROUTINE SCREENING Aunt with breast cancer. TECHNIQUE: SCRN MAMM (CAD)W/EILEEN BILAT COMPARISON: Prior exam(s) dated July 02, 2024.. FINDINGS: TISSUE DENSITY: The breasts are heterogeneously dense, which may obscure small masses. Bilateral Breast Mammographic Findings: No significant masses, calcifications or other abnormalities are identified. Stable small benign- appearing bilateral axillary lymph nodes. No suspicious masses, areas of developing architectural distortion, or suspicious calcifications. There has been no significant interval change. BI/SCRN MAMM (CAD)W/EILEEN BILAT IMPRESSION: Stable examination. OVERALL FINAL ASSESSMENT BI-RADS 2: BENIGN RECOMMENDATION: Routine annual follow-up in 1 Year A letter with findings and recommendations will be mailed to the patient. Reading Location: [id number] CC: Dr. Booker Anderson MD Dry Cleaner Helper: Signed Normal [facility] Encounters Encounter Date Encounter Type Care Provider Facility Start: 09-12-2025 ambulatory Booker Anderson Facilit y:[facility] Start: 09-02-2025 ambulatory Booker Mccray y:[facility] Start: 08-06-2025 End: 08-06-2025 ambulatory Booker Anderson Facility:[facility] Start: 07-03-2025 End: 07-03-[address] Booker Anderson MD Work Phone: -Outpatient Breast Imaging Start: 07-03-2025 End: 07-03-[address] Booker Anderson MD -Outpatient Breast Imaging Work Phone: Start: 07-03-2025 End: 07-03-2025 ambulatory Booker Anderson Facility:[facility] Start: 06-28-2023 End: 06-28-2023 ambulatory [facility] Work Phone: Start: 06-28-2023 End: 06-28-2023 Patient encounter procedure [facility]-Outpatient Breast Imaging Work Phone: Start: 09-10-2022 End: 09-10-2022 ambulatory [facility] Work Phone: Start: 09-10-2022 End: 09-10-2022 Patient encounter procedure [facility]-Ultrasound, [facility] Start: 06-25-2022 End: 06-25-2022 ambulatory [facility] Work Phone: Start: 06-25-2022 End: 06-25-2022 Patient encounter procedure [facility]-Outpatient Breast Imaging Procedures Date Procedure Procedure Detail Performing Clinician Start: 07-03-2025 Screening mammography Magdalena Anderson MD Work Phone: Start: 06-28-2023 Screening mammography Start: 09-10-2022 US scan of thyroid Start: 06-25-2022 Screening mammograph y of bilateral breasts Payers Date Payer Category Payer Private Health Insurance [id number] 2025 Self-pay [id number] 2025 Medicare [id number] 2006 Unknown [id number] Self-pay [id number] Unknown [id number] Unknown [id number] [id number] Unknown [id number] 2.16.8 [id number] Unknown [id number] 2.16.8 [id number] Social History Date Type Detail Facility Tobacco smoking stat [facility] Unknown if ever smoked [facility] Work Phone: Start: 1960 Sex Assigned At Female W [facility] Tobacco smoking stat [facility] Unknown if ever smoked [facility] Work Phone: Evaluation note Note Date & Type Note Facility Evaluation note No assessment information availa ble [facility] Work Phone: Reason for referral (narrative) Note Date & Type Note Facility Reason for referral (narrative) No reason for referral information available [facility] Work Phone: Chief Complaint and Reason for Visit Chief Complaint SCREENING Chief Complaint SCREENING NODULES Chief Complaint Admit Date SCREENING July 03, 2025 12 :37pm Summary Purpose Family History No Family History Records Found Advance Directives No Advanced Directives Records Found Additional Source Comments Goals (unrecognized section and content) Goals may be documented in a n alternate sectionGoals may be documented in an alternate sectionGoals may be documented in an alternate sectionGoals may be documented in an alternate section Care Teams (unrecognized sec tion and content) Team Status: Active Member Role Status Dates Dr. Booker Pugh MD Family Provider Active Dr. Booker Anderson MD Primary Care Provider Active Team Status: Inactive Member Role Status Dates Dr. Booker Anderson MD Primary Care Pr ovider, Attending Provider, Referring Provider Active Team Status: Active Member Role/Relationship Status Dates Dr. Booker Anderson MD Primary Care Provider Active Team Status: Inactive Member Role/Relationship Status Dates Dr. Booker Anderson MD Primary Care Provider Active Start: July 03, 2025 End: July 03, 2025 Dr. Booker Anderson MD Attending Provider Active Start: July 03, 2025 End: July 03, 2025 Dr. Booker Anderson MD Referring Provider Active Start: July 03, 2025 End: July 03, 2025 INFORMATION SOURCE (unrecogn ized section and content) DATE CREATED AUTHOR 08/30/2025 [facility] FOR RECORDS PERTAINING TO PATIENTS WHO ARE OR HAVE BEEN ENROLLED IN A CHEMICAL DEPENDENCY/SUBSTANCEABUSE PROGRAM, SOME INFORMATION MAY BE OMITTED. This clinical summary was aggregated from multiple sources. Caution should be exercised in using it in the provision of clinical care. This summary normalizes information from multiple sources, and as a consequence, information in this document may materially change the coding, format and clinical context of patient data. In addition, data may be omitted in some cases. CLINICAL DECISIONS SHOULD BE BASED ON THE PRIMARY CLINICAL RECORDS. [employer] provides no warranty or guarantee of the accuracy or completeness of information in this document.
--- NOTE | 2025-09-02 12:11 | STRESSREP_ITS ---
Stress Test Report Date: 09/02/2025 Procedure: Exercise tolerance test/imaging study Indications: Abnormal ECG Consent: Per the patient Procedure: The patient exercised on a Ruiz protocol for 6 minutes achieving a peak heart rate of 153 bpm (98% predicted maximal heart rate) with a peak blood pressure 182/88 mmHg and a peak MET capacity of 7.0 METs. The baseline ECG demonstrated sinus rhythm with inferolateral ST depressions. The peak exercise ECG was nondiagnostic secondary to baseline abnormality. There were no cardiac dysrhythmias pretest, during exercise, or recovery. The functional capacity was considered average for age. There was no complaint of chest discomfort during exercise or recovery. The examination was discontinued secondary to target heart rate being achieved. The patient was injected with 11.5 mCi of technetium 99m Cardiolite and subsequently rest SPECT Cardiolite nuclear imaging was obtained in the horizon roberth long, vertical long, and short axis views. Post-exercise, the patient was injected with 34.2 mCi of technetium 99m Cardiolite and subsequently stress SPECT Cardiolite nuclear imaging was obtained in the horizontal long, vertical long, and short axis views. A gated Cardiolite study at peak stress was obtained. Rest and stress SPECT Cardiolite nuclear imaging status post realignment, normalization, and attenuation correction, demonstrates the appearance of relative uniform tracer uptake and myocardial perfusion appearing within normal limits. There is end systolic thickening and brightening. The gated Cardiolite study demonstrates myocardial thickening and inward wall motion. The reported LVEF is 78%. Impression: 1. Technically adequate (percent predicted maximal heart rate greater than 85%) exercise tolerance test 2. Peak exercise ECG was nondiagnostic secondary to baseline abnormality 3. There were no cardiac dysrhythmias pretest, during exercise, or recovery 4. Rest and stress SPECT Cardiolite nuclear imaging demonstrate relative uniform tracer uptake and myocardial perfusion appearing within normal limits. 5. The gated Cardiolite study reports an LVEF of 78%. This note was generated with [employer] software. It may contain incorrect words, spelling, and punctuation that were not noted in checking the note before signing.
== END | disposition home or self-care (01) ==
LOC: CVS 06:39
PROVIDERS: PCP Family Medicine; Referring Provider Family Medicine; Visit Provider Family Medicine
DX: R94.31 Abnormal electrocardiogram [ECG] [EKG] (principal)
CPT/HCPCS: 78452; 93017; A9500; A4216

== ENCOUNTER → 2025-09-12 | Outpatient (CLI) | payer MEDICARE, OTHER, SELFPAY ==
--- NOTE | 2025-09-12 08:59 | BD_ITS ---
PROCEDURE: DEXA BONE DENSITY STUDY 09/12/2025 REASON FOR EXAM: F, age 64 y/o . Postmenopausal. TECHNIQUE: Procedure Code: BDDBD Modality: DX Procedure: DEXA BONE DENSITY STUDY COMPARISON: None FINDINGS: BMD and T-SCORES Lumbar spine: 0.740 g/cm2, T-score -2.8 Levels: L1 through L4 Left femoral neck: 0.440 g/cm2, T-score -3.7 Femoral neck comparison data not recommended for monitoring change. Left total hip: 0.551 g/cm2, T-score -3.2 Right femoral neck: 0.446 g/cm2, T-score -3.6 Femoral neck comparison data not recommended for monitoring change. Right total hip: 0.519 g/cm2, T-score -3.5 The World Health Organization has defined the following categories based on bone density: Normal bone density: T-score equal to or greater than -1.0 Osteopenia: T-score between -1.0 and -2.5 Osteoporosis: T-score equal to or less than -2.5 FRAX (or Comparable) Fracture Risk Assessment: 10 Year Probability of Fracture: Major Osteoporotic Fracture: 33% Hip Fracture: 9.9%% (Note: FRAX is not to be reported in setting of normal range bone density, osteoporosis on DEXA, known history of osteoporosis, prior osteoporotic hip or vertebral fracture, or for any patient undergoing pharmacological treatment for bone loss.) The National Osteoporosis Foundation (NOF) recommends pharmacological treatment for patients with a FRAX 10-year risk of 3% or higher for a hip fracture, or 20% or higher for a major osteoporotic fracture, to prevent osteoporosis and reduce fracture risk. The patient does meet the pharmacological treatment recommendations for prevention of osteoporosis. BD/Dexa Bone Density Study IMPRESSION: OSTEOPOROSIS. Recommend follow-up as clinically warranted. Reading Location: [facility]
--- OUTSIDE RECORDS SUMMARY | 2025-09-12 09:47 | XMS RPT_ITS | CCD ---
Author Organization [facility] Care Team Providers Care Shift Leader Name Role Phone Justin DIAZ, Dr. Booker Shea Primary Care Provider Justin DIAZ, Dr. Booker Shea Attending Provider Justin DIAZ, Dr. Booker Shea Referring Provider Booker Anderson Attending Unavailable Booker Anderson Referring Unavailable Booker Anderson Primary Care Unavailable Booker Anderson Attending Unavailable Booker Anderson Referring Unavailable Booker Anderson Primary Care Unavailable Booker Anderson Attending Unavailable Booker Anderson Referring Unavailable Booker Anderson Primary Care Unavailable Marjorie Gant Attending Unavailable Booker Anderson Referring Unavailable Booker Anderson Primary Care Unavailable Booker Anderson Consulting Unavailable Booker Anderson Attending Unavailable Booker Anderson Referring Unavailable Booker Anderson Primary Care Unavailable Problems Problem Classification Problem Date Documented [...] menopausal state; Translations: [Asymptomatic menopausal state] Onset: 09-08-2025 Episodic Results Test Name Value Interpretation Reference Range Facil ity Stress Reporton 09-02-2025 Stress Report [facility] Cardiovascular Services [address] [place] [address] MR#: [id number] Acct: [id number] Name: SIDRA ALEJO Rep #: [id number] : 1960 64 From: Marjorie Gant MD Primary Care: Dr. Booker Anderson MD Status: REG CLI Referring Dr: Booker Anderson MD Sex: F C Stress Test Report Date: 09/02/2025 Procedure: Exercise tolerance test/imaging study Indications: Abnormal ECG Consent: Per the patient Procedure: The patient exercised on a Ruiz protocol for 6 minutes achieving a peak heart rate of 153 bpm (98% predicted maximal heart rate) with a peak blood pressure 182/88 mmHg and a peak MET capacity of 7.0 METs. The baseline ECG demonstrated sinus rhythm with inferolateral ST depressions. The peak exercise ECG was nondiagnostic secondary to baseline abnormality. There were no cardiac dysrhythmias pretest, during exercise, or recovery. The functional capacity was considered average for age. There was no complaint of chest discomfort during exercise or recovery. The examination was discontinued secondary to target heart rate being achieved. The patient was injected with 11.5 mCi of technetium 99m Cardiolite and subsequently rest SPECT Cardiolite nuclear imaging was obtained in the horizontal long, vertical long, and short axis views. Post-exercise, the patient was injected with 34.2 mCi of technetium 99m Cardiolite and subsequently stress SPECT Cardiolite nuclear imaging was obtained in the horizontal long, vertical long, and short axis views. A gated Cardiolite study at peak stress was obtained. Rest and stress SPECT Cardiolite nuclear imaging status post realignment, normalization, and attenuation correction, demonstrates the appearance of relative uniform tracer uptake and myocardial perfusion appearing within normal limits. There is end systolic thickening and brightening. The gated Cardiolite study demonstrates myocardial thickening and inward wall motion. The reported LVEF is 78%. Impression: 1. Technically adequate (percent predicted maximal heart rate greater than 85%) exercise tolerance test 2. Peak exercise ECG was nondiagnostic secondary to baseline abnormality 3. There were no cardiac dysrhythmias pretest, during exercise, or recovery 4. Rest and stress SPECT Cardiolite nuclear imaging demonstrate relative uniform tracer uptake and myocardial perfusion appearing within normal limits. 5. The gated Cardiolite study reports an LVEF of 78%. This note was generated with Pennantation software. It may contain incorrect words, spelling, and punctuation that were not noted in checking the note before signing. 09/02/251211 Date Marjorie Gant MD CC: Dr. Booker Anderson MD Date Dictated: 09/02/251210 Date Transcribed: 09/02/251210 Senior Lead Software Engineer: AR Signed Normal [facility] Hemoglobin A1con 08-08-2025 HbA1c (Bld) [Mass fraction] 5.6 % Normal <=5.6 [facility] Comment on above: Order Comment: PLEASE ADD A1C TO LABS DONE ON 08 06 25 Order Date: 08/08/25 Order Info: 4548-4 - A1C Comments: elevated glucose Result Comment: Norm al < 5.7 % Prediabetic 5.7 - 6.4 % Diabetic >or= 6.5 % Please note range changes. Performed By: #### L 501.9985 #### [facility] [address] [place], [address] CBC W/Diff, Automatedon 07-10 Absolute Lymph 1.48 X10 3/uL Normal 0.83-4.51 [facility] Comment on above: Order Comment: Order Date: 08/06/25 Order Info: 0184-1 - CBCD Performed By: #### L 500.4100, L501.9520, L500.4050, L100.0100 #### [facility] [address] [place], [address] Absolute Neut 8.4 X10 3/uL High 2.0-7.7 [facility] Comment on above: Order Comment: Order Date: 08/06/25 Order Info: 0184-1 - CBCD Performed By: #### L 500.4100, L501.9520, L500.4050, L100.0100 #### [facility] [address] [place], [address] Basophils/100 WBC (Bld) 0.6 % Normal 0-1 [facility] Comment on above: Order Comment: Order Date: 08/06/25 Order Info: 0184-1 - CBCD Performed By: #### L 500.4100, L501.9520, L500.4050, L100.0100 #### [facility] [address] [place], [address] Eosinophils/100 WBC (Bld) 0.8 % Normal 0-5 [facility] Comment on above: Order Comment: Order Date: 08/06/25 Order Info: 0184-1 - CBCD Performed By: #### L 500.4100, L501.9520, L500.4050, L100.0100 #### [facility] [address] [place], [address] Erythrocyte distribution width (RBC) [Ratio] 13.8 % Normal 11.6-14.6 [facility] Comment on above: Order Comment: Order Date: 08/06/25 Order Info: 0184-1 - CBCD Performed By: #### L 500.4100, L501.9520, L500.4050, L100.0100 #### [facility] [address] [place], [address] Hematocrit (Bld) [Volume fraction] 42.1 % Normal 37-47 [facility] Comment on above: Order Comment: Order Date: 08/06/25 Order Info: 0184-1 - CBCD Performed By: #### L 500.4100, L501.9520, L500.4050, L100.0100 #### [facility] [address] [place], [address] Hemoglobin (Bld) [Mass/Vol] 13.8 g/dL Normal 12.0-15.0 [facility] Comment on above: Order Comment: Order Date: 08/06/25 Order Info: 0184-1 - CBCD Performed By: #### L 500.4100, L501.9520, L500.4050, L100.0100 #### [facility] [address] [place], [address] IG% 0.500 Normal 0.0-0.9 [facility] Comment on above: Order Comment: Order Date: 08/06/25 Order Info: 0184-1 - CBCD Result Comment: IG% - Immature Granulocytes (promyelocytes, myelocytes and metamyelocytes) > 1% indicates that a LEFT SHIFT is Present. Performed By: #### L 500.4100, L501.9520, L500.4050, L100.0100 #### [facility] [address] [place], [address] Lymphocytes/100 WBC (Bld) 13.7 % Low 19-41 [facility] Comment on above: Order Comment: Order Date: 08/06/25 Order Info: 0184- - CBCD Performed By: #### L 500.4100, L501.9520, L500.4050, L100.0100 #### [facility] [address] [place], [address] MCH (RBC) [Entitic mass] 30.5 pg Normal 27.0-32.0 [facility] Comment on above: Order Comment: Order Date: 08/06/25 Order Info: 0184-1 - CBCD Performed By: #### L 500.4100, L501.9520, L500.4050, L100.0100 #### [facility] [address] [place], [address] MCHC (RBC) [Mass/Vol] 32.8 g/dL Normal 32-36 [facility] Comment on above: Order Comment: Order Date: 08/06/25 Order Info: 0184- - CBCD Performed By: #### L 500.4100, L501.9520, L500.4050, L100.0100 #### [facility] [address] [place], [address] MCV (RBC) [Entitic vol] 93.1 fL Normal 81-99 [facility] Comment on above: Order Comment: Order Date: 08/06/25 Order Info: 0184-1 - CBCD Performed By: #### L 500.4100, L501.9520, L500.4050, L100.0100 #### [facility] [address] [place], [address] Monocytes/100 WBC (Bld) 7.0 % Normal 0-10 [facility] Comment on above: Order Comment: Order Date: 08/06/25 Order Info: 0184-1 - CBCD Performed By: #### L 500.4100, L501.9520, L500.4050, L100.0100 #### [facility] [address] [place], [address] Neutrophils/100 WBC (Bld) 77.4 % High 47-70 [facility] Comment on above: Order Comment: Order Date: 08/06/25 Order Info: 0184-1 - CBCD Performed By: #### L 500.4100, L501.9520, L500.4050, L100.0100 #### [facility] [address] [place], [address] Nucleated RBC (Bld) [#/Vol] 0 10*3/uL Normal 0-5 [facility] Comment on above: Order Comment: Order Date: 08/06/25 Order Info: 0184-1 - CBCD Performed By: #### L 500.4100, L501.9520, L500.4050, L100.0100 #### [facility] [address] [place], [address] Platelet mean volume (Bld) [Entitic vol] 11.2 fL Normal 6.2-12.0 [facility] Comment on above: Order Comment: Order Date: 08/06/25 Order Info: 0184-1 - CBCD Performed By: #### L 500.4100, L501.9520, L500.4050, L100.0100 #### [facility] [address] [place], [address] Platelets (Bld) [#/Vol] 260 10*3/uL Normal 150-450 [facility] Comment on above: Order Comment: Order Date: 08/06/25 Order Info: 0184-1 - CBCD Performed By: #### L 500.4100, L501.9520, L500.4050, L100.0100 #### [facility] [address] [place], [address] RBC (Bld) [#/Vol] 4.52 10*6/uL Normal 4.2-5.4 [facility] Comment on above: Order Comment: Order Date: 08/06/25 Order Info: 0184-1 - CBCD Performed By: #### L 500.4100, L501.9520, L500.4050, L100.0100 #### [facility] [address] [place], [address] RDW SD 47.1 fl High 35.1-43.9 [facility] Comment on above: Order Comment: Order Date: 08/06/25 Order Info: 0184-1 - CBCD Performed By: #### L 500.4100, L501.9520, L500.4050, L100.0100 #### [facility] [address] [place], [address] WBC (Bld) [#/Vol] 10.8 10*3/uL Normal 4.4-11.0 [facility] Comment on above: Order Comment: Order Date: 08/06/25 Order Info: 0184-1 - CBCD Performed By: #### L 500.4100, L501.9520, L500.4050, L100.0100 #### [facility] [address] [place], [address] Comprehensive Metabolic Prof ilon 08-06-2025 Albumin [Mass/Vol] 4.5 g/dL Normal 3.4-4.8 [facility] Comment on above: Order Comment: Order Date: 08/06/25 Order Info: 785-11 - CMP Order Info: - LIPID Order Info: 3 - TSH Performed By: #### L 500.4100, L501.9520, L500.4050, L100.0100 #### [facility] [address] [place], [address] Albumin/Globulin [Mass ratio] 1.7 {ratio} Normal 0.9-2.4 [facility] Comment on above: Order Comment: Order Date: 08/06/25 Order Info: 785-11 - CMP Order Info: - LIPID Order Info: 3016-01 - TSH Performed By: #### L 500.4100, L501.9520, L500.4050, L100.0100 #### [facility] [address] [place], [address] ALK PHOS 54 U/L Normal 35-104 [facility] Comment on above: Order Comment: Order Date: 08/06/25 Order Info: 785-11 - CMP Order Info: - LIPID Order Info: 3016-01 - TSH Performed By: #### L 500.4100, L501.9520, L500.4050, L100.0100 #### [facility] [address] [place], [address] ALT [Catalytic activity/Vol] 25 U/L Normal <=34 [facility] Comment on above: Order Comment: Order Date: 08/06/25 Order Info: 07 - CMP Order Info: - LIPID Order Info: 3 - TSH Performed By: #### L 500.4100, L501.9520, L500.4050, L100.0100 #### [facility] [address] [place], [address] AST [Catalytic activity/Vol] 26 U/L Normal <=31 [facility] Comment on above: Order Comment: Order Date: 08/06/25 Order Info: 0786-1 - CMP Order Info: 58427-7 - LIPID Order Info: 3016-3 - TSH Performed By: #### L 500.4100, L501.9520, L500.4050, L100.0100 #### [facility] [address] [place], [address] Bilirubin [Mass/Vol] 0.43 mg/dL Normal 0.00-1.30 [facility] Comment on above: Order Comment: Order Date: 08/06/25 Order Info: 0786-1 - CMP Order Info: 50594-0 - LIPID Order Info: 30163 - TSH Performed By: #### L 500.4100, L501.9520, L500.4050, L100.0100 #### [facility] [address] [place], [address] BUN/CRE 21.3 RATIO High 10-20 [facility] Comment on above: Order Comment: Order Date: 08/06/25 Order Info: 0786-1 - CMP Order Info: [id number] - LIPID Order Info: 3016-3 - TSH Performed By: #### L 500.4100, L501.9520, L500.4050, L100.0100 #### [facility] [address] [place], [address] Calcium [Mass/Vol] 9.6 mg/dL Normal 7.6-11.0 [facility] Comment on above: Order Comment: Order Date: 08/06/25 Order Info: 0786-1 - CMP Order Info: 09724-9 - LIPID Order Info: 3016-3 - TSH Performed By: #### L 500.4100, L501.9520, L500.4050, L100.0100 #### [facility] [address] [place], [address] Chloride [Moles/Vol] 104 mmol/L Normal 98-108 [facility] Comment on above: Order Comment: Order Date: 08/06/25 Order Info: 785- - CMP Order Info: 58415-1 - LIPID Order Info: 3 - TSH Performed By: #### L 500.4100, L501.9520, L500.4050, L100.0100 #### [facility] [address] [place], [address] CO2 [Moles/Vol] 25.0 mmol/L Normal 21.0-32.0 [facility] Comment on above: Order Comment: Order Date: 08/06/25 Order Info: 785- - CMP Order Info: - LIPID Order Info: 3 - TSH Performed By: #### L 500.4100, L501.9520, L500.4050, L100.0100 #### [facility] [address] [place], [address] Creatinine [Mass/Vol] 0.90 mg/dL Normal 0.70-1.20 [facility] Comment on above: Order Comment: Order Date: 08/06/25 Order Info: 785-11 - CMP Order Info: 79669-2 - LIPID Order Info: 3 - TSH Performed By: #### L 500.4100, L501.9520, L500.4050, L100.0100 #### [facility] [address] [place], [address] GAP 12 Normal 5-15 [facility] Comment on above: Order Comment: Order Date: 08/06/25 Order Info: 07 - CMP Order Info: 09796-5 - LIPID Order Info: 3015-3 - TSH Performed By: #### L 500.4100, L501.9520, L500.4050, L100.0100 #### [facility] [address] [place], [address] GFR/1.73 sq M.predicted among non-blacks MDRD (S/P/Bld) [Vol rate/Area] 71 mL/min/{1.73_m2} Normal >60 [facility] Comment on above: Order Comment: Order Date: 08/06/25 Order Info: 785-11 - CMP Order Info: - LIPID Order Info: 3016-01 - TSH Result Comment: mL/m in/1.73m2 CKD-EPI Creatinine Equation (2020) Performed By: #### L 500.4100, L501.9520, L500.4050, L100.0100 #### [facility] [address] [place], [address] Globulin (S) [Mass/Vol] 2.6 g/dL Normal 2.2-4.2 [facility] Comment on above: Order Comment: Order Date: 08/06/25 Order Info: 785-11 - CMP Order Info: - LIPID Order Info: 3016-01 - TSH Performed By: #### L 500.4100, L501.9520, L500.4050, L100.0100 #### [facility] [address] [place], [address] Glucose [Mass/Vol] 107 mg/dL High 70-99 [facility] Comment on above: Order Comment: Order Date: 08/06/25 Order Info: 0786 - CMP Order Info: [id number] - LIPID Order Info: 3016-01 - TSH Performed By: #### L 500.4100, L501.9520, L500.4050, L100.0100 #### [facility] [address] [place], [address] Potassium [Moles/Vol] 4.9 mmol/L Normal 3.3-5.1 [facility] Comment on above: Order Comment: Order Date: 08/06/25 Order Info: 0786 - CMP Order Info: [id number] - LIPID Order Info: 3016-01 - TSH Performed By: #### L 500.4100, L501.9520, L500.4050, L100.0100 #### [facility] [address] [place], [address] Sodium [Moles/Vol] 141 mmol/L Normal 133-145 [facility] Comment on above: Order Comment: Order Date: 08/06/25 Order Info: 07 - CMP Order Info: [id number] - LIPID Order Info: 3 - TSH Performed By: #### L 500.4100, L501.9520, L500.4050, L100.0100 #### [facility] [address] [place], [address] T PROT 7.0 g/dL Normal 5.9-8.4 [facility] Comment on above: Order Comment: Order Date: 08/06/25 Order Info: 785-11 - CMP Order Info: [id number] - LIPID Order Info: 3016-01 - TSH Performed By: #### L 500.4100, L501.9520, L500.4050, L100.0100 #### [facility] [address] [place], [address] Urea nitrogen [Mass/Vol] 19 mg/dL Normal 4-19 [facility] Comment on above: Order Comment: Order Date: 08/06/25 Order Info: 07 - CMP Order Info: [id number] - LIPID Order Info: 3016-01 - TSH Performed By: #### L 500.4100, L501.9520, L500.4050, L100.0100 #### [facility] [address] [place], [address] Lipid Profileon 08-06-2025 CHOL:HDL 2.16 Normal [facility] Comment on above: Order Comment: Order Date: 08/06/25 Order Info: 07 - CMP Order Info: [id number] - LIPID Order Info: 3 - TSH Performed By: #### L 500.4100, L501.9520, L500.4050, L100.0100 #### [facility] [address] [place], [place], [address] Cholesterol [Mass/Vol] 211 mg/dL High <=200 [facility] Comment on above: Order Comment: Order Date: 08/06/25 Order Info: 0786- - CMP Order Info: [id number] - LIPID Order Info: 3016-01 - TSH Result Comment: Chol esterol level, Desirable <200 mg/dL Borderline high cholesterol 200-239 mg/dL High cholesterol >=240 mg/dL Recommendations of the NCEP Adult Treatment Panel for the following risk-cutoff thresholds for the [place] population. Performed By: #### L 500.4100, L501.9520, L500.4050, L100.0100 #### [facility] [address] [place], [place], [address] Cholesterol in HDL [Mass/Vol] 98 mg/dL Normal [facility] Comment on above: Order Comment: Order Date: 08/06/25 Order Info: 0786 - CMP Order Info: [id number] - LIPID Order Info: 3016-01 - TSH Result Comment: Jeanine onal Cholesterol Education Program (NCEP) guidelines: <40 mg/dL: Low HDL-cholesterol (major risk factor for CHD) >= 60 mg/dL: High HDL-cholesterol (negative risk factor for CHD) HDL-cholesterol is affected by a number of factors, e.g. smoking, exercise, hormones, sex and age. Performed By: #### L 500.4100, L501.9520, L500.4050, L100.0100 #### [facility] [address] [place], [address] Cholesterol in LDL [Mass/Vol] 96 mg/dL Normal [facility] Comment on above: Order Comment: Order Date: 08/06/25 Order Info: 0786- - CMP Order Info: [id number] - LIPID Order Info: 3016-01 - TSH Result Comment: Bord bclimv=968-759 mg/dL Higher Iuum=470 mg/dL or greater Friedwald Equation for LDL-C Performed By: #### L 500.4100, L501.9520, L500.4050, L100.0100 #### [facility] [address] [place], [address] Cholesterol in VLDL [Mass/Vol] 17 mg/dL Normal 5-40 [facility] Comment on above: Order Comment: Order Date: 08/06/25 Order Info: 0786-1 - CMP Order Info: [id number] - LIPID Order Info: 3015-3 - TSH Performed By: #### L 500.4100, L501.9520, L500.4050, L100.0100 #### [facility] [address] [place], [address] Triglyceride [Mass/Vol] 85 mg/dL Normal [facility] Comment on above: Order Comment: Order Date: 08/06/25 Order Info: 0786-1 - CMP Order Info: [id number] - LIPID Order Info: 3015-3 - TSH Result Comment: The drugs N-Acetylcysteine and Metamizole may falsely depress this assay. Normal range: <150 mg/dL Borderline High: 150-199 mg/dL High: 200-499 mg/dL Very High: >500 mg/dL Performed By: #### L 500.4100, L501.9520, L500.4050, L100.0100 #### [facility] [address] [place], [address] Thyroid Stim Hormone (TSH)on 08-06-2025 TSH 1.810 uIU/mL Normal 0.300-4.200 [facility] Comment on above: Order Comment: Order Date: 08/06/25 Order Info: 0786-1 - CMP Order Info: [id number] - LIPID Order Info: 3016-3 - TSH Performed By: #### L 500.4100, L501.9520, L500.4050, L100.0100 #### [facility] [address] [place], [address] Urinalysis, Completeon 08-06 EPI,SQUAMOUS 0-5 SEEN Normal 5-10 [facility] Comment on above: Order Comment: CLEAN CATCH Performed By: #### L 400.0001 #### [facility] [address] [place], [address] RBC 0-5 SEEN Normal 0-5 [facility] Comment on above: Order Comment: CLEAN CATCH Performed By: #### L 400.0001 #### [facility] [address] [place], [address] WBC 0-5 SEEN Normal 0-5 [facility] Comment on above: Order Comment: CLEAN CATCH Performed By: #### L 400.0001 #### [facility] [address] [place], [address] BACTERIA 0 SEEN Normal None Seen [facility] Comment on above: Order Comment: CLEAN CATCH Performed By: #### L 400.0001 #### [facility] [address] [place], [address] Mucus Ql (Urine sed) 0 SEEN Normal [facility] Comment on above: Order Comment: CLEAN CATCH Performed By: #### L 400.0001 #### [facility] [address] [place], [address] Breast imaging reportOrdered By: Flavio Shelley on 07-03-2025 Study report [facility] Imaging Services [address] [place] [address] SCRN MAMM (CAD)W/EILEEN BILAT MR#: [id number] Acct: [id number] Name: SIDRA ALEJO Rep #: [id number] : 1960 F 64 From: Sid Shelley MD PCP: Dr. Booker Anderson MD Status: RE G CLI Study:SCRN MAMM (CAD)W/EILEEN BILAT Date of Exa m: 07/03/25 Exam# [id number] Ordering Dr: Booker Anderson MD EXAM: SCRN [...] be mailed to the patient. Reading Location: [id number] CC: Dr. Booker Anderson MD ~ Senior Lead Software Engineer: Signed [facility] SCRN MAMM (CAD)W/EILEEN BILATo n 07-03-2025 SCRN MAMM (CAD)W/EILEEN BILAT [facility] Imaging Services [address] [place], [place] [id number] SCRN MAMM (CAD)W/EILEEN BILAT MR#: [id number] Acct: [id number] Name: SIDRA ALEJO Rep #: [id number] : 1960 F 64 From: Flavio evans MD PCP: Dr. Booker Anderson MD Status: [facility] Study: SCRN MAMM (CAD)W/EILEEN BILAT Date of Exam: 06/08 05/31 Exam# [id number] Ordering Dr: Booker Anderson MD EXAM: SCRN [...] be mailed to the patient. Reading Location: [id number] CC: Dr. Booker Anderson MD Senior Lead Software Engineer: Signed Normal [facility] Encounters Encounter Date Encounter Type Care Provider Facility Start: 09-12-2025 ambulatory Booker Anderson Facilit y:[facility] Start: 09-02-2025 ambulatory Marjorie Stalin Facility:[facility] Start: 09-02-2025 ambulatory Booekr Anderson Facilit y:[facility] Start: 08-06-2025 End: 08-06-2025 ambulatory Booker Anderson Facility:[facility] Start: 07-03-2025 End: 07-03-[address] Booker Anderson MD Work Phone: -Outpatient Breast Imaging Start: 07-03-2025 End: 07-03-[address] Booker Anderson MD -Outpatient Breast Imaging Work Phone: Start: 07-03-2025 End: 07-03-2025 ambulatory Booker Anderson Facility:[facility] Start: 06-28-2023 End: 06-28-2023 ambulatory [facility] Work Phone: Start: 06-28-2023 End: 06-28-2023 Patient encounter procedure [facility]-Outpatient Breast Imaging Work Phone: Start: 09-10-2022 End: 09-10-2022 ambulatory [facility] Work Phone: Start: 09-10-2022 End: 09-10-2022 Patient encounter procedure [facility]-Ultrasound, [facility] Start: 06-25-2022 End: 06-25-2022 ambulatory [facility] Work Phone: Start: 06-25-2022 End: 06-25-2022 Patient encounter procedure [facility]-Outpatient Breast Imaging Procedures Date Procedure Procedure Detail Performing Clinician Start: 07-03-2025 Screening mammography Magdalena Anderson MD Work Phone: Start: 06-28-2023 Screening mammography Start: 09-10-2022 US scan of thyroid Start: 06-25-2022 Screening mammograph y of bilateral breasts Payers Date Payer Category Payer Private Health Insurance [id number] 2025 Self-pay [id number] 2025 Medicare [id number] 2006 Unknown [id number] Self-pay [id number] Unknown [id number] Unknown [id number] Unknown [id number] [id number] Unknown [id number] [id number] Unknown [id number] Social History Date Type [facility]ail [facility] Work Phone: Start: 1960 Sex Assigned At Female [facility] Work Phone: Evaluation note Note Date & Type Note Facility Evaluation note No assessment information availa ble [facility] Work Phone: Reason for referral (narrative) Note Date & Type Note Facility Reason for referral (narrative) No reason for referral information available [facility] Work Phone: Chief Complaint and Reason [...] ized section and content) DATE CREATED AUTHOR 09/09/2025 [facility] FOR RECORDS PERTAINING TO PATIENTS WHO ARE [...] BE BASED ON THE PRIMARY CLINICAL RECORDS. [employer] provides no warranty or guarantee of the accuracy or completeness of information in this document.
== END | disposition home or self-care (01) ==
LOC: OPBD 08:57
PROVIDERS: PCP Family Medicine; Referring Provider Family Medicine; Visit Provider Family Medicine
DX: Z13.820 Encounter for screening for osteoporosis (principal); Z78.0 Asymptomatic menopausal state
CPT/HCPCS: 77080

== ENCOUNTER → 2025-09-19 | Outpatient (CLI) | payer MEDICARE, OTHER, SELFPAY ==
[2025-09-19 15:53] LABS: AST(SGOT) 30 U/L (<=31); Alanine Aminotransfer ALT/SGPT 28 U/L (<=34); Albumin, Serum 4.3 g/dL (3.4-4.8); Alkaline Phosphatase 51 U/L (35-104); Anion Gap 11 (5-15); BUN 15 mg/dL (4-19); BUN/Creat Ratio 21.0 RATIO (10-20); Calcium,Total 9.6 mg/dL (7.6-11.0); Carbon Dioxide 25.3 mmol/L (21.0-32.0); Chloride 104 mmol/L (98-108); Globulin 2.4 g/dL (2.2-4.2); Glucose 90 mg/dL (70-99); Potassium 4.5 mmol/L (3.3-5.1); Vitamin D,25 Hydroxy 58.1 ng/mL (30-100)
== END | disposition home or self-care (01) ==
LOC: MFPLAB 12:05
PROVIDERS: PCP Family Medicine; Visit Provider Family Medicine
DX: M81.0 Age-related osteoporosis without current pathological fracture (principal)
CPT/HCPCS: 36415; 80053; 82306